=== PATIENT | male | born 1975 | race Caucasian/White ===

== ENCOUNTER 2021-10-28 19:36 | Emergency (ER) | payer MEDICARE ==
[2021-10-28 19:38] VITALS: BP 132/94; PULSE 110
[2021-10-28] MEDS ORDERED: Sodium Chloride 0.9% 10 ML Syringe FLUSH PRN (19:46)
== END 2021-10-28 21:45 | disposition home or self-care (01) ==
LOC: CC.ED 19:36
DX: J90 Pleural effusion, not elsewhere classified (principal); Z72.0 Tobacco use; Z20.822 Contact with and (suspected) exposure to COVID-19
CPT/HCPCS: 36415; 71046; 71275; 80053; 84484; 85025; 85379; 85610; 86140; 93005; 99285-25; U0002

== ENCOUNTER 2023-02-19 19:58 | Emergency (ER) | payer MEDICARE ==
[2023-02-19 20:31] LABS: BASOPHILS ABSOLUTE AUTO 0.03 10^3/uL (0.00-0.50); BASOPHILS PERCENT AUTO 0.5 % (0-1); EOSINOPHILS ABSOLUTE AUTO 0.13 10^3/uL (0.00-1.50); HEMATOCRIT 41.3 % (42.0-52.0); HEMOGLOBIN 14.5 g/dL (14.0-18.0); IMMATURE GRAN ABSOLUTE AUTO 0.01 10^3/uL (0.00-0.49); IMMATURE GRAN PERCENT AUTO 0.2 % (0.0-4.9); LYMPHOCYTES ABSOLUTE AUTO 2.01 10^3/uL (0.60-5.00); LYMPHOCYTES PERCENT AUTO 31.3 % (24-44); MEAN CORPUSCULAR HEMOGLOBIN 30.3 pg (27.0-32.0); MEAN CORPUSCULAR HGB CONC 35.1 g/dL (32.0-36.0); MEAN CORPUSCULAR VOLUME 86.4 fL (83.0-97.0); MONOCYTES ABSOLUTE AUTO 0.83 10^3/uL (0.00-1.50); MONOCYTES PERCENT AUTO 12.9 % (0-10); NEUTROPHILS ABSOLUTE AUTO 3.41 x10^3/uL (1.80-8.00); NEUTROPHILS PERCENT AUTO 53.1 % (41-71); PLATELET COUNT,PLT 253 10^3/uL (150-400); RED BLOOD CELL COUNT 4.78 x10^6/uL (4.50-6.00); WHITE BLOOD CELL COUNT,WBC 6.4 10^3/uL (4.0-11.0)
[2023-02-19 20:39] VITALS: BP 108/76; PULSE 95
[2023-02-19 20:42] LABS: PROTHROMBIN TIME 10.3 SEC (9.3-11.3); PTT,PARTIAL THROMBOPLSTIN TIME 27.2 SEC (20.0-30.0)
[2023-02-19 20:46] LABS: ALBUMIN 3.8 g/dL (3.4-5.0); BILIRUBIN TOTAL 0.2 mg/dL (0.0-1.0); CALCIUM 9.1 mg/dL (8.4-10.1); EST CRCL DRUG DOSING (CG) 81.52 mL/min; MAGNESIUM 2.1 mg/dL (1.8-2.4); POTASSIUM,K 3.8 mEq/L (3.5-5.0); PROTEIN TOTAL,TP 8.1 g/dL (6.4-8.2)
== END 2023-02-19 21:05 | disposition home or self-care (01) ==
LOC: CC.ED 19:58
DX: R11.0 Nausea (principal); Z87.891 Personal history of nicotine dependence; Z79.82 Long term (current) use of aspirin; Z79.899 Other long term (current) drug therapy
CPT/HCPCS: 36415; 80053; 83690; 83735; 84484; 85025; 85610; 85730; 93005; 93010; 99284